=== PATIENT | male | born 1985 | race African-American/Black ===

== ENCOUNTER 2019-08-14 23:15 | Emergency (ER) | payer SELFPAY ==
[~2019-08-14] VITALS: Ht 190.5 cm; Wt 91.6 kg
[2019-08-14 23:21] VITALS: BP 121/83; Ht 190.5 cm; Wt 91.6 kg
== END 2019-08-15 01:23 | disposition left against medical advice (07) ==
LOC: ED 23:15
DX: Z53.21 Procedure and treatment not carried out due to patient leaving prior to being seen by health care provider (principal)